=== PATIENT | female | born 1975 | race American Indian/Alaskan Native ===

== ENCOUNTER 2022-11-21 19:30 | Emergency (ER) | payer OTHER ==
[~2022-11-21] VITALS: Ht 172.7 cm; Wt 108.0 kg
[2022-11-21] MEDS ORDERED: SUBOXONE 8 MG-1 EAC1 SL (20:59)
--- OUTSIDE RECORDS SUMMARY | 2022-11-21 21:40 | XMS ---
PreManage Notification: MATTIE CASTILLO [employer] Events No recent Security Events currently on file [facility] There are no care providers on record at this time. [facility] has no Care Guidelines for this patient. Abhishek VISIT COUNT (12 MO.) 1 AMANDA Howell TOTAL 1 NOTE: Visits indicate total known visits. ED/C VISIT TRACKING (12 MO.) 11/21/2022 19:32 AMANDA Enriquez [place] TYPE: Emergency COMPLAINT: - DIFFICULTY BREATHING INPATIENT VISIT TRACKING (12 MO.) No inpatient visits to display in this time frame [email or web address]
[2022-11-21] MEDS ORDERED: ONDANSETRON ODT8 MG PO (23:48)
[2022-11-21] MEDS ORDERED: HYDROCODON-ACE1 EA10 PO (23:48)
== END 2022-11-22 00:10 | disposition home or self-care (01) ==
LOC: ED 19:30
DX: K85.20 Alcohol induced acute pancreatitis without necrosis or infection (principal); F10.90 Alcohol use, unspecified, uncomplicated; Z88.8 Allergy status to other drugs, medicaments and biological substances
CPT/HCPCS: 36415; 74177; 80053; 81001; 83690; 83735; 84703; 85025; 96361; 96374; 96375; 99284-25; A9270; J1170; J2060; J2405; J7030; Q9967